=== PATIENT | male | born 1980 | race African-American/Black ===

== ENCOUNTER 2019-12-31 12:02 | Emergency (ER) | payer MEDICAID ==
[~2019-12-31] VITALS: Ht 182.9 cm; Wt 91.2 kg
--- NOTE | 2019-12-31 12:09 | NUR ---
PT CURRENTLY UNABLE TO PROVIDE URINE. WILL ASK AGAIN FOR URINE SAMPLE.
--- NOTE | 2019-12-31 12:10 | NUR ---
PT CAME TO ER BED 14 C/O MID EPIGASTRIC PAIN. PT IS AAOX3. PT IS LETHARGIC, PT FOLLOWS VERBAL COMMANDS. DENIES DRUG USE. BREATHING EVENLY AND UNLABORED ON ROOM AIR. CONNECTED TO MONITOR.
--- NOTE | 2019-12-31 12:19 | NUR ---
ROTARY DRILLER HELPER AT BEDSIDE FOR BLOOD DRAW
--- NOTE | 2019-12-31 12:23 | NUR ---
XRAY AT BEDSIDE
--- NOTE | 2019-12-31 12:24 | NUR ---
PT CURRENTLY UNABLE TO PROVIDE URINE, WILL ASK AGAIN TO PROVIDE URINE AT A LATER TIME.
--- NOTE | 2019-12-31 12:29 | NUR ---
ULTRA SOUND AT BEDSIDE
[2019-12-31 12:30] LABS: BASOPHILS # (AUTO) 0.1 /CMM (0.0-0.2); BASOPHILS % (AUTO) 1.7 % (0.0-2.0); HEMATOCRIT 42 % (39-51); HEMOGLOBIN 13.5 g/dL (13.5-17.5); LYMPHOCYTES # (AUTO) 1.3 /CMM (0.8-4.8); LYMPHOCYTES % (AUTO) 25.2 % (20.0-44.0); MEAN CORPUSCULAR HGB CONC 32 g/dl (31.0-36.0); MEAN CORPUSCULAR VOLUME 89 fL (80-96); MONOCYTES # (AUTO) 0.6 /CMM (0.1-1.30); NEUTROPHILS # (AUTO) 3.2 /CMM (1.8-8.9); NEUTROPHILS % (AUTO) 61.1 % (43.0-81.0); PLATELET COUNT (AUTO) 251 /CMM (150-450); RED BLOOD CELL COUNT(AUTO) 4.73 MIL/uL (4.5-6.0); WHITE BLOOD COUNT (AUTO) 5.2 K/uL (4.3-11.0)
[2019-12-31 12:37] LABS: CALCIUM, SERUM 8.6 mg/dL (8.5-10.1); CARBON DIOXIDE 29 mmol/L (21-32); CHLORIDE 102 mmol/L (98-107); GLUCOSE 93 mg/dL (74-106); POTASSIUM 4.4 mmol/L (3.5-5.1); SODIUM SERUM 137 mmol/L (136-145); UREA NITROGEN, BLOOD 18 mg/dL (7-18)
[2019-12-31 12:43] LABS: ALANINE AMINOTRANSFERASE 15 U/L (12-78); ALBUMIN 3.2 g/dL (3.4-5.0); ALKALINE PHOSPHATASE 76 U/L (46-116); ASPARTATE AMINOTRANSFERASE 13 U/L (15-37); BILIRUBIN,TOTAL 0.2 mg/dL (0.2-1.0); LIPASE 130 U/L (73-393); TOTAL PROTEIN, SERUM 6.7 g/dL (6.4-8.2)
--- NOTE | 2019-12-31 13:52 | NUR ---
Patient discharged to home in stable condition. Written and verbal after care instructions given. Patient verbalizes understanding of instruction.
--- NOTE | 2019-12-31 14:30 | NUR ---
MELANIA contacted Jesse to inquire if the pt can return back to [facility]. Per Jesse pt. is able to return back to [facility]. WINDOW DRAPER updated María Elena in ED.
--- NOTE | 2019-12-31 14:38 | NUR ---
TAMARA DUFFY [id number] TRIP#[id number]
--- NOTE | 2019-12-31 15:31 | NUR ---
urine collected and sent to lab for testing
--- NOTE | 2019-12-31 16:12 | NUR ---
SO TABITHA GARCIA RN FOR REPORT [phone]
--- NOTE | 2019-12-31 16:22 | NUR ---
REPORT GIVEN TO ZENAIDA WONG FROM TABITHA GARCIA FOR [facility].
--- NOTE | 2019-12-31 16:22 | NUR ---
Ruth guthrie in ED - 12/31/19 at 1622 by SHEEBA REPORT GIVEN TO ZENAIDA WONG FOR CHANDA.
[2019-12-31 17:19] VITALS: BP 121/71
== END 2019-12-31 17:20 | disposition home or self-care (01) ==
LOC: ER 12:05
DX: K80.20 Calculus of gallbladder without cholecystitis without obstruction (principal); R40.0 Somnolence; I10 Essential (primary) hypertension; K21.9 Gastro-esophageal reflux disease without esophagitis; F32.9 Major depressive disorder, single episode, unspecified
CPT/HCPCS: 36415; 71045-TC; 76705-TC; 80048-TC; 80076-TC; 80305; 83690-TC; 84484-TC; 85025-TC; G0480